=== PATIENT | female | born 1965 | race Caucasian/White ===

== ENCOUNTER 2017-11-10 21:28 | Emergency (ER) | END 2017-11-11 03:54 | disposition home or self-care (01) ==

== ENCOUNTER 2017-12-03 12:56 | Emergency (ER) | END 2017-12-03 14:29 | disposition home or self-care (01) ==

== ENCOUNTER 2019-02-03 07:43 | Day surgery (SDC) | payer BC ==
[~2019-02-03] VITALS: Ht 167.6 cm; Wt 53.0 kg
[~2019-02-03 07:43] MED LIST: CEPH-443 PO; CLON-429 PO; CLON2TAB12 PO; DULO60CA6 PO; FIORICET PO; METH750T93 PO; NAPR-688 PO; SULF1TAB31 PO; SUMA100T4 PO
[2019-02-03 08:34] VITALS: Ht 167.6 cm; Wt 53.0 kg
[2019-02-03 09:00] VITALS: BP 110/60; PULSE 78; RESP 18
[2019-02-03] MEDS ORDERED: PROPOFOL 40 ML ONE (09:22)
[2019-02-03 09:52] VITALS: BP 121/75; RESP 16
== END 2019-02-03 11:15 | disposition home or self-care (01) ==
LOC: GIL 07:43
PROVIDERS: ATTEND Internal Medicine Gastroenterology
DX: Z12.11 Encounter for screening for malignant neoplasm of colon (principal); K29.00 Acute gastritis without bleeding; R10.13 Epigastric pain
CPT/HCPCS: 43239; 45378; 88305; 88312; Z7610